=== PATIENT | male | born 1960 | race Caucasian/White ===

== ENCOUNTER 2019-01-08 16:01 | Emergency (ER) | payer MEDICARE, SELFPAY ==
[2019-01-08 16:09] VITALS: BP 146/78; PULSE 76; RESP 16; TEMP 36.4; O2SAT 96; BMI 26.2
--- NOTE | 2019-01-08 17:58 | ED_ITS ---
HPI - Skin/Abscess/Foreign Bdy <HUSSAIN Jauregui - Last Filed: 01/08/19 20:54> General Chief complaint: Skin/Abscess/Foreign Body Stated complaint: Right foot cellulitis? Time Seen by Provider: 01/08/19 17:39 Source: patient Mode of arrival: ambulatory Limitations: no limitations History of Present Illness HPI narrative: 58-year-old patient with a history of AML and AID who is being tr eated with infusions every 8 weeks of IgG, presents emergency department today complains of a sore to his right foot for the past 8 days. States sore developed from a boot that was rubbing on the area, he seen his cancer doctor about this and was told to wait till after his IgG infusion as this often makes infections better. After infusion, patient states his wound was dressed with bacitracin. Over the past few days the redness has spread he was concerned that the infection was not getting better. Patient denies fever, chills, nausea, vomiting, diarrhea, abdominal pain, chest pain, shortness of breath, or syncope. States that he has close follow-up. Also reports he often takes doxycycline which works for his infections. Related Data Previous Rx's Medication Instructions Recorded doxycycline hyclate 100 mg PO BID #7 cap 01/08/19 doxycycline hyclate 100 mg PO BID 7 Days #14 cap 01/08/19 Allergies Allergy/AdvReac Type Severity Reaction Status Date / Time cephalexin AdvReac Rash Verified 01/08/19 16:16 Review of Systems <HUSSAIN Jauregui - Last Filed: 01/08/19 20:54> Review of Systems REVIEW OF SYSTEMS: GENERAL: Denies fever or chills. HENT: No head trauma, hearing loss or sore throat. EYES: No loss of vision, double vision, eye pain, or irritation. CARDIOVASCULAR: No chest pain or syncope. RESPIRATORY: No shortness of breath or cough. GASTROINTESTINAL: No nausea, vomiting, diarrhea, or constipation. GENITOURINARY: No flank pain or dysuria. MUSCULOSKELETAL: No pain, weakness, or deformities. INTEGUMENTARY: Complains of wound to right foot, see HPI. NEURO: No numbness, tingling, memory loss, or confusion. PSYCH: No behavior or mood changes. PFSH <HUSSAIN Jauregui - Last Filed: 01/08/19 20:54> Medical History AML (acute myeloblastic leukemia) (Acute) Social History Smoking Status: Current every day smoker Social History Smoking Status: Current every day smoker Exam <HUSSAIN Jauregui - Last Filed: 01/08/19 20:54> Initial Vital Signs Initial Vital Signs: Vital Signs Temperature 97.6 F 01/08/19 16:09 Pulse Rate 76 01/08/19 16:09 Respiratory Rate 16 01/08/19 16:09 Blood Pressure 146/78 H 01/08/19 16:09 Pulse Oximetry 96 01/08/19 16:09 PHYSICAL EXAMINATION: GENERAL: Well groomed, alert, and cooperative. Answers questions promptly and appropriately. Vital signs noted. HENT: Normocephalic, atraumatic. EYES: Conjunctiva pink, sclera white, no periorbital swelling. CARDIOVASCULAR: S1 and S2 sounds normal. Regular rate and rhythm, no murmurs, clicks, or bruits. No pedal edema. RESPIRATORY: Normal respiratory rate, trachea midline, airway patent. No stridor, nasal flaring or accessory muscle use. Lungs are clear in all [place] without wheeze, rhonchi, or crackles. MUSCULOSKELETAL: Normal gait and coordination. Equal tone and mass bilaterally. EXTREMITIES: CMS intact. Moves all extremities. SKIN: 1 cm x 2 cm pink annular wound on metacarpal phalangeal in joint proximal to the big toe on the right foot. Surrounding mild erythema to 6 cm laterally in 3 cm proximally. No purulence exudative. Slightly increased temperature. Pedal pulses intact bilaterally. The rest of his skin is warm, dry, soft, appropriate color for ethnicity. No lesions, rashes, or wounds. NEURO: Alert and Oriented X 3. Good coordination. No ataxia, or sensory deficits, or cognitive issues. PSYCH: Appropriate affect and mood. <Celestina Dejesus DO - Last Filed: 01/09/19 09:15> Initial Vital Signs Initial Vital Signs: Vital Signs Temperature 97.6 F 01/08/19 16:09 Pulse Rate 76 01/08/19 16:09 Respiratory Rate 16 01/08/19 16:09 Blood Pressure 146/78 H 01/08/19 16:09 Pulse Oximetry 96 01/08/19 16:09 Course <Chelsi HUSSAIN Venegas - Last Filed: 01/08/19 20:54> Consultations Consultation #1: Patient staffed with Dr. Dejesus. Vital Signs - 8 hr 01/08/19 16:09 01/08/19 18:17 01/08/19 18:43 Temperature 97.6 F Pulse Rate 76 74 71 Respiratory Rate 16 16 18 Blood Pressure 146/78 H 114/70 Blood Pressure [Right Arm] 106/63 Pulse Oximetry 96 97 98 <Celestina Dejesus DO - Last Filed: 01/09/19 09:15> Vital Signs - 8 hr 01/08/19 16:09 01/08/19 18:17 01/08/19 18:43 Temperature 97.6 F Pulse Rate 76 74 71 Respiratory Rate 16 16 18 Blood Pressure 146/78 H 114/70 Blood Pressure [Right Arm] 106/63 Pulse Oximetry 96 97 98 MDM - Skin/Abscess/Foreign Bdy <ChelsiHUSSAIN Keys - Last Filed: 01/08/19 20:54> Medical Records Attestation: I reviewed the patient's medical records. Lab Data Attestation: I reviewed the patient's lab results. MDM Narrative Medical decision making narrative: I suspect that patient symptoms are caused by an infection, increased warmth, swelling and erythema. However infection appears contains and mild the for p.o. antibiotics seem appropriate, patient also admits that he is able to return emergency department if symptoms get any worse. Additionally patient states that he is followed closely by his oncologist and primary care provider. Very low suspicion of intense infection or sepsis as patient remains a febrile, and infection is very localized as noted on exam. Discharge Plan Departure Patient Disposition: Home Clinical Impression: Cellulitis Qualifiers: Site of cellulitis: extremity Site of cellulitis of extremity: lower extremity Laterality: right Qualified Code(s): L03.115 - Cellulitis of right lower limb Discharge Date/Time: 01/08/19 18:45 Interventions: ED Discharge Assessment Last Done: 01/08/19 18:43 Instructions: DI for Cellulitis -- Adult Activity Restrictions/Additional Instructions: Thank you for entrusting me with your care today. As discussed, it appears that you have a skin infection in her foot. I prescribed you antibiotics, please take this medication until it is completely gone. We have also drawn a line around the redness, if this increases significantly in size in the past few days, he developed fever, uncontrollable vomiting, chest pain or shortness of breath, please return to the emergency department. Follow up with her primary care provider in the following week for recheck. Prescriptions: New doxycycline hyclate 100 mg capsule 100 mg PO BID Qty: 7 RF: 0 doxycycline hyclate 100 mg capsule 100 mg PO BID 7 Days Qty: 14 RF: 0 <Celestina Dejesus DO - Last Filed: 01/09/19 09:15> [place] Attending Demetriaature Attestation: I was immediately available in the department for consultation. Documentation has been reviewed. I agree with assessment and plan.
[2019-01-08 18:17] VITALS: BP 106/63; PULSE 74; RESP 16; O2SAT 97
[2019-01-08 18:43] VITALS: BP 114/70; PULSE 71; RESP 18; O2SAT 98
== END 2019-01-08 18:45 | disposition home or self-care (01) ==
PROVIDERS: Emergency Provider Nurse Practitioner
DX: L03.115 Cellulitis of right lower limb (principal)
CPT/HCPCS: 99282; 99283